=== PATIENT | male | born 1980 | race Caucasian/White ===

== ENCOUNTER → 2016-08-07 | Outpatient (REF) | payer BC ==
[2016-08-07 18:24] LABS: ALBUMIN 4.4 GM/DL (3.2-5.2); ALKALINE PHOSPHATASE 76 U/L (45-117); ALT/SGPT 112 U/L (12-78); ANION GAP 6 MEQ/L (8-16); AST/SGOT 59 U/L (15-37); BILIRUBIN,TOTAL 0.3 MG/DL (0.2-1.0); BLOOD UREA NITROGEN 13 MG/DL (7-18); CALCIUM LEVEL 9.1 MG/DL (8.5-10.1); CARBON DIOXIDE LEVEL 29 MEQ/L (21-32); CHLORIDE LEVEL 105 MEQ/L (98-107); CREATININE FOR GFR 0.84 MG/DL (0.70-1.30); GLOMERULAR FILTRATION RATE > 60.0 (>60); GLUCOSE, FASTING 95 MG/DL (70-105); POTASSIUM SERUM 4.2 MEQ/L (3.5-5.1); SODIUM LEVEL 140 MEQ/L (136-145); TOTAL PROTEIN 8.4 GM/DL (6.4-8.2)
[2016-08-07 19:50] LABS: BASO % 0.7 % (0.0-1.0); EOS # 0.3 K/mm3 (0.0-0.50); LARGE UNSTAINED CELL # 0.1 K/mm3 (0.0-0.4); LARGE UNSTAINED CELL % 1.4 % (0.0-4.0); LYMPH # 1.7 K/mm3 (1.5-4.5); LYMPH % 24.8 % (24.0-44.0); MEAN CORPUSCULAR HEMOGLOBIN 32.4 pg (27.0-33.0); MEAN CORPUSCULAR HGB CONC 34.2 g/dl (32.0-36.5); MEAN CORPUSCULAR VOLUME 94.8 fl (80.0-96.0); MONO # 0.4 K/mm3 (0.0-0.8); MONO % 5.5 % (0.0-5.0); NEUTROPHILS # 4.1 K/mm3 (1.8-7.7); NEUTROPHILS % 63.6 % (36.0-66.0); PLATELET COUNT, AUTOMATED 259 k/mm3 (150-450); RED CELL DISTRIBUTION WIDTH 12.7 % (11.5-14.5); WHITE BLOOD COUNT 6.5 K/mm3 (4.0-10.0)
[2016-08-08 13:17] LABS: CONTROL LINE HPYORI INT CTR LINE PRESENT
== END ==
LOC: M SFHCCLAY 09:55
PROVIDERS: ATTEND Nurse Practitioner
DX: K29.70 Gastritis, unspecified, without bleeding (principal)

== ENCOUNTER → 2017-02-28 | Outpatient (REF) | payer BC ==
[2017-02-28 12:42] LABS: ALBUMIN 4.7 GM/DL (3.2-5.2); ALBUMIN/GLOBULIN RATIO 1.18 (1.00-1.93); ALKALINE PHOSPHATASE 80 U/L (45-117); ALT/SGPT 99 U/L (12-78); ANION GAP 7 MEQ/L (8-16); AST/SGOT 72 U/L (7-37); BILIRUBIN,TOTAL 0.6 MG/DL (0.2-1.0); BLOOD UREA NITROGEN 15 MG/DL (7-18); CALCIUM LEVEL 9.8 MG/DL (8.5-10.1); CARBON DIOXIDE LEVEL 29 MEQ/L (21-32); CHLORIDE LEVEL 103 MEQ/L (98-107); CREATININE FOR GFR 0.89 MG/DL (0.70-1.30); GLOMERULAR FILTRATION RATE > 60.0 (>60); GLUCOSE, FASTING 97 MG/DL (70-105); POTASSIUM SERUM 4.4 MEQ/L (3.5-5.1); SODIUM LEVEL 139 MEQ/L (136-145); TOTAL PROTEIN 8.7 GM/DL (6.4-8.2)
== END ==
LOC: M SFHCCLAY 07:26
DX: R79.89 Other specified abnormal findings of blood chemistry (principal)
CPT/HCPCS: 80053

== ENCOUNTER → 2017-07-29 | Outpatient (REF) | payer BC ==
[2017-07-29 12:37] LABS: ANION GAP 11 MEQ/L (8-16); BLOOD UREA NITROGEN 16 MG/DL (7-18); CALCIUM LEVEL 9.5 MG/DL (8.5-10.1); CARBON DIOXIDE LEVEL 29 MEQ/L (21-32); CHLORIDE LEVEL 100 MEQ/L (98-107); GLOMERULAR FILTRATION RATE > 60.0 (>60); GLUCOSE, FASTING 105 MG/DL (70-100); POTASSIUM SERUM 3.5 MEQ/L (3.5-5.1); SODIUM LEVEL 140 MEQ/L (136-145)
== END ==
LOC: M SFHCCLAY 07:26
DX: I10 Essential (primary) hypertension (principal)
CPT/HCPCS: 80048

== ENCOUNTER → 2017-11-08 | Outpatient (REF) | payer BC ==
[2017-11-08 13:10] LABS: ALBUMIN 4.4 GM/DL (3.2-5.2); ALBUMIN/GLOBULIN RATIO 1.07 (1.00-1.93); ALKALINE PHOSPHATASE 96 U/L (45-117); ALT/SGPT 344 U/L (12-78); ANION GAP 11 MEQ/L (8-16); AST/SGOT 239 U/L (7-37); BILIRUBIN,TOTAL 0.5 MG/DL (0.2-1.0); BLOOD UREA NITROGEN 13 MG/DL (7-18); CALCIUM LEVEL 9.7 MG/DL (8.5-10.1); CARBON DIOXIDE LEVEL 28 MEQ/L (21-32); CHLORIDE LEVEL 99 MEQ/L (98-107); CREATININE FOR GFR 0.88 MG/DL (0.70-1.30); GLOMERULAR FILTRATION RATE > 60.0 (>60); GLUCOSE, FASTING 105 MG/DL (70-100); POTASSIUM SERUM 3.3 MEQ/L (3.5-5.1); SODIUM LEVEL 138 MEQ/L (136-145); TOTAL PROTEIN 8.5 GM/DL (6.4-8.2)
== END ==
LOC: M SFHCCLAY 07:49
DX: I10 Essential (primary) hypertension (principal)
CPT/HCPCS: 80053

== ENCOUNTER 2018-08-16 22:50 | Emergency (ER) | payer BC ==
[~2018-08-16] VITALS: Ht 180.3 cm; Wt 81.8 kg
[2018-08-16] MEDS ORDERED: ATEN100T7 PO (23:03)
[2018-08-16] MEDS ORDERED: BUSP15TA47 PO (23:03)
[2018-08-16] MEDS ORDERED: LORA2CON5 PO (23:03)
[2018-08-16] MEDS ORDERED: NS 1,000 ML IV ONE ×2 (23:15)
[2018-08-16 23:50] LABS: BLOOD UREA NITROGEN 11 MG/DL (7-18); CALCIUM LEVEL 8.6 MG/DL (8.5-10.1); CARBON DIOXIDE LEVEL 28 MEQ/L (21-32); CHLORIDE LEVEL 101 MEQ/L (98-107); CPK CREATINE PHOSPHOKINASE 217 U/L (39-308); CREATININE FOR GFR 0.81 MG/DL (0.70-1.30); ETHYL ALCOHOL (ETHANOL) 0.272 % (0.000-0.010); GLOMERULAR FILTRATION RATE > 60.0 (>60); GLUCOSE, FASTING 106 MG/DL (70-100); SODIUM LEVEL 140 MEQ/L (136-145)
[2018-08-17] MEDS ORDERED: POTASSIUM CHLORIDE 10 MEQ SR TABLET PO ONE
[2018-08-17 00:55] VITALS: BP 133/91
== END 2018-08-17 00:57 | disposition home or self-care (01) ==
LOC: M ED 22:50
DX: F10.229 Alcohol dependence with intoxication, unspecified (principal); E87.6 Hypokalemia; I10 Essential (primary) hypertension; F33.9 Major depressive disorder, recurrent, unspecified; F41.9 Anxiety disorder, unspecified; Z79.899 Other long term (current) drug therapy; F17.210 Nicotine dependence, cigarettes, uncomplicated
CPT/HCPCS: 80048; 82550; 96360; 96361; 99284; G0480

== ENCOUNTER → 2018-09-15 | Outpatient (REF) | payer BC ==
[~2018-09-15] MED LIST: ATEN100T7 PO; BUSP15TA47 PO; LORA2CON5 PO
[2018-09-15 17:32] LABS: ALBUMIN 4.7 GM/DL (3.2-5.2); ALT/SGPT 160 U/L (12-78); BILIRUBIN,TOTAL 0.7 MG/DL (0.2-1.0); BLOOD UREA NITROGEN 13 MG/DL (7-18); CALCIUM LEVEL 10.1 MG/DL (8.5-10.1); CARBON DIOXIDE LEVEL 33 MEQ/L (21-32); CHLORIDE LEVEL 91 MEQ/L (98-107); CREATININE FOR GFR 0.91 MG/DL (0.70-1.30); FREE T4 0.85 NG/DL (0.76-1.46); GLOMERULAR FILTRATION RATE > 60.0 (>60); GLUCOSE, FASTING 93 MG/DL (70-100); POTASSIUM SERUM 3.3 MEQ/L (3.5-5.1); SODIUM LEVEL 132 MEQ/L (136-145); TOTAL PROTEIN 8.8 GM/DL (6.4-8.2)
[2018-09-15 17:40] LABS: HEMATOCRIT 43.3 % (42.0-52.0); HEMOGLOBIN 15.7 g/dl (13.5-17.5); MEAN CORPUSCULAR HEMOGLOBIN 32.6 pg (27.0-33.0); MEAN CORPUSCULAR HGB CONC 36.3 g/dl (32.0-36.5); PLATELET COUNT, AUTOMATED 210 10^3/uL (150-450); RED BLOOD COUNT 4.81 10^6/uL (4.30-6.10); WHITE BLOOD COUNT 5.5 10^3/uL (4.0-10.0)
== END ==
LOC: M SFHCCLAY 10:08
PROVIDERS: ATTEND Family Medicine
DX: F41.9 Anxiety disorder, unspecified (principal)

== ENCOUNTER → 2019-01-15 | Outpatient (REF) | payer BC ==
[2019-01-15 12:21] LABS: ALBUMIN 3.8 GM/DL (3.2-5.2); ALT/SGPT 80 U/L (12-78); BILIRUBIN,TOTAL 0.3 MG/DL (0.2-1.0); BLOOD UREA NITROGEN 14 MG/DL (7-18); CALCIUM LEVEL 9.2 MG/DL (8.5-10.1); CARBON DIOXIDE LEVEL 34 MEQ/L (21-32); CHLORIDE LEVEL 99 MEQ/L (98-107); CHOLESTEROL LEVEL 168 MG/DL (<200); CREATININE FOR GFR 0.87 MG/DL (0.70-1.30); GLOMERULAR FILTRATION RATE > 60.0 (>60); GLUCOSE, FASTING 120 MG/DL (70-100); HDL CHOLESTEROL 35 MG/DL (>40); NON-HDL-C 133 MG/DL; POTASSIUM SERUM 3.6 MEQ/L (3.5-5.1); SODIUM LEVEL 140 MEQ/L (136-145); TOTAL PROTEIN 7.7 GM/DL (6.4-8.2); TRIGLYCERIDES LEVEL 401 MG/DL (<150)
[2019-01-15 13:47] LABS: HEMOGLOBIN A1c 5.5 %
== END ==
LOC: M SFHCCLAY 07:30
PROVIDERS: ATTEND Family Medicine
DX: I10 Essential (primary) hypertension (principal); R73.01 Impaired fasting glucose

== ENCOUNTER 2019-08-04 10:04 | Emergency (ER) | payer BC ==
[~2019-08-04] VITALS: Ht 182.9 cm; Wt 88.6 kg
[2019-08-04] MEDS ORDERED: TRAZ-252 (10:27)
[2019-08-04] MEDS ORDERED: ESCI20TA PO (10:27)
[2019-08-04 11:37] LABS: HEMATOCRIT 42.6 % (42.0-52.0); HEMOGLOBIN 15.3 g/dl (13.5-17.5); MEAN CORPUSCULAR HEMOGLOBIN 33.4 pg (27.0-33.0); MEAN CORPUSCULAR HGB CONC 35.9 g/dl (32.0-36.5); PLATELET COUNT, AUTOMATED 236 10^3/uL (150-450); RED BLOOD COUNT 4.58 10^6/uL (4.30-6.10); WHITE BLOOD COUNT 4.6 10^3/uL (4.0-10.0)
[2019-08-04 12:13] LABS: ACETAMINOPHEN LEVEL < 2.0 UG/ML (10.0-30.0); ALT/SGPT 250 U/L (12-78); BILIRUBIN,DIRECT 0.2 MG/DL (0.0-0.2); BILIRUBIN,TOTAL 0.3 MG/DL (0.2-1.0); BLOOD UREA NITROGEN 9 MG/DL (7-18); CALCIUM LEVEL 8.9 MG/DL (8.5-10.1); CARBON DIOXIDE LEVEL 28 MEQ/L (21-32); CHLORIDE LEVEL 95 MEQ/L (98-107); CREATININE FOR GFR 0.76 MG/DL (0.70-1.30); ETHYL ALCOHOL (ETHANOL) 0.262 % (0.000-0.010); GLOMERULAR FILTRATION RATE > 60.0 (>60); GLUCOSE, FASTING 111 MG/DL (70-100); POTASSIUM SERUM 2.8 MEQ/L (3.5-5.1); SODIUM LEVEL 134 MEQ/L (136-145); TOTAL PROTEIN 8.3 GM/DL (6.4-8.2)
[2019-08-04 12:30] LABS: MAGNESIUM LEVEL 1.7 MG/DL (1.8-2.4)
[2019-08-04] MEDS ORDERED: MAGNESIUM OXIDE 400 MG TAB (MAG-OX) PO ONE (13:00)
[2019-08-04] MEDS ORDERED: POTASSIUM CHLORIDE 10 MEQ SR TABLET PO ONE ×2 (13:00→19:45)
[2019-08-04 13:28] LABS: AMPHETAMINES LEVEL URINE NEGATIVE (NEGATIVE); BARBITURATES URINE NEGATIVE (NEGATIVE); BENZODIAZEPINES URINE NEGATIVE (NEGATIVE); CANNABINOIDS URINE NEGATIVE (NEGATIVE); COCAINE METABOLITE URINE NEGATIVE (NEGATIVE); METHADONE URINE NEGATIVE (NEGATIVE); OPIATES URINE NEGATIVE (NEGATIVE); PHENCYCLIDINE URINE NEGATIVE (NEGATIVE)
[2019-08-04] MEDS ORDERED: PHENobarbitaL 30 MG TAB PO ONE (19:45)
[2019-08-05 04:17] VITALS: BP 155/88
--- NOTE | 2019-08-05 09:50 | ECGEPIP ---
[facility] - ED Test Date: 2019-08-04 Pat Name: TRISTEN CAH Department: Room: - Gender: Male [employer]: : 1980 Requested By: CRUZ RICO Order Number: [id number] Reading MD: Jamil Romero Measurements Intervals [place] Rate: 77 P: 41 MO: 181 QRS: 67 QRSD: 114 T: 55 QT: 417 QTc: 475 Interpretive Statements SINUS RHYTHM MODERATE INTRAVENTRICULAR CONDUCTION DELAY NSTTW ABNORMALITIES NO PRIORS FOR COMPARISON Electronically Signed on 08-05-2019 9:50:24 EDT by Jamil Romero
== END 2019-08-05 04:19 ==
LOC: M ED 10:04
DX: R45.851 Suicidal ideations (principal); I10 Essential (primary) hypertension; F17.200 Nicotine dependence, unspecified, uncomplicated; K21.9 Gastro-esophageal reflux disease without esophagitis; F41.9 Anxiety disorder, unspecified; F32.9 Major depressive disorder, single episode, unspecified; Z79.899 Other long term (current) drug therapy
CPT/HCPCS: 36415; 80048; 80076; 80307; 83735; 84443; 85027; 87486; 87581; 87633; 87798; 93005; 99285; G0480

== ENCOUNTER → 2020-01-22 | Outpatient (REF) | payer OTHER ==
[~2020-01-22] MED LIST changes: +ESCI20TA PO; +TRAZ-252
[2020-01-22 11:55] LABS: BASO # 0.1 10^3/uL (0.0-0.2); BASO % 2.1 % (0.0-1.0); EOS # 0.2 10^3/uL (0.0-0.5); EOS % 2.9 % (0.0-3.0); HEMATOCRIT 43.2 % (42.0-52.0); HEMOGLOBIN 14.9 g/dl (13.5-17.5); LYMPH # 2.5 10^3/uL (1.5-5.0); LYMPH % 37.2 % (24.0-44.0); MEAN CORPUSCULAR HEMOGLOBIN 33.3 pg (27.0-33.0); MEAN CORPUSCULAR HGB CONC 34.5 g/dl (32.0-36.5); MEAN CORPUSCULAR VOLUME 96.6 fl (80.0-96.0); MONO # 0.7 10^3/uL (0.0-0.8); MONO % 10.4 % (0.0-5.0); NEUTROPHILS # 3.1 10^3/uL (1.5-8.5); NEUTROPHILS % 47.2 % (36.0-66.0); PLATELET COUNT, AUTOMATED 268 10^3/uL (150-450); RED BLOOD COUNT 4.47 10^6/uL (4.30-6.10); WHITE BLOOD COUNT 6.6 10^3/uL (4.0-10.0)
[2020-01-22 12:15] LABS: HEMOGLOBIN A1c 5.5 %
[2020-01-22 12:24] LABS: ALBUMIN 4.3 GM/DL (3.2-5.2); ALT/SGPT 244 U/L (12-78); BILIRUBIN,TOTAL 1.1 MG/DL (0.2-1.0); BLOOD UREA NITROGEN 11 MG/DL (7-18); CALCIUM LEVEL 9.7 MG/DL (8.5-10.1); CARBON DIOXIDE LEVEL 28 MEQ/L (21-32); CHLORIDE LEVEL 95 MEQ/L (98-107); CHOLESTEROL LEVEL 194 MG/DL (<200); CHOLESTEROL RISK RATIO 3.403 (<5); CREATININE FOR GFR 0.93 MG/DL (0.70-1.30); GLOMERULAR FILTRATION RATE > 60.0 (>60); GLUCOSE, FASTING 119 MG/DL (70-100); HDL CHOLESTEROL 57 MG/DL (>40); LDL CHOLESTEROL 107 MG/DL (<100); NON-HDL-C 137 MG/DL; POTASSIUM SERUM 3.1 MEQ/L (3.5-5.1); SODIUM LEVEL 134 MEQ/L (136-145); TOTAL PROTEIN 8.8 GM/DL (6.4-8.2); TRIGLYCERIDES LEVEL 152 MG/DL (<150)
== END ==
LOC: M SFHCCLAY 07:34
PROVIDERS: ATTEND Family Medicine
DX: I10 Essential (primary) hypertension (principal); R73.01 Impaired fasting glucose

== ENCOUNTER 2021-03-07 12:41 | Inpatient (IN) | payer OTHER ==
[~2021-03-07 12:41] MED LIST changes: -ESCI20TA PO; +ESCI20TA16 PO; -TRAZ-252; +TRAZ-252 PO
[2021-03-07] MEDS ORDERED: FAMOTIDINE INJ 20MG/2ML VIAL (S0028 PER 1) IVP ONE (12:50)
[2021-03-07] MEDS ORDERED: ONDANSETRON 4MG/2ML VIAL IV ONE (12:50)
[2021-03-07] MEDS ORDERED: NS 1,000 ML IV ONE (12:50)
[2021-03-07 13:23] LABS: INR 1.72; PROTHROMBIN TIME 20.6 SECONDS (12.7-14.5)
[2021-03-07 13:31] LABS: BASO # 0.1 10^3/uL (0.0-0.2); BASO % 1.1 % (0.0-1.0); EOS # 0.2 10^3/uL (0.0-0.5); EOS % 2.2 % (0.0-3.0); HEMATOCRIT 31.6 % (42.0-52.0); HEMOGLOBIN 11.9 g/dl (13.5-17.5); LYMPH # 1.3 10^3/uL (1.5-5.0); LYMPH % 12.5 % (24.0-44.0); MEAN CORPUSCULAR HEMOGLOBIN 35.1 pg (27.0-33.0); MEAN CORPUSCULAR VOLUME 93.2 fl (80.0-96.0); MONO % 10.3 % (2.0-8.0); NEUTROPHILS # 7.2 10^3/uL (1.5-8.5); NEUTROPHILS % 71.3 % (36.0-66.0); PLATELET COUNT, AUTOMATED 147 10^3/uL (150-450); RED BLOOD COUNT 3.39 10^6/uL (4.30-6.10); WHITE BLOOD COUNT 10.1 10^3/uL (4.0-10.0)
[2021-03-07 13:36] LABS: MEAN CORPUSCULAR HGB CONC 37.7 g/dl (32.0-36.5)
[2021-03-07 13:51] LABS: CK-MB VALUE MASS 9.5 NG/ML (<3.6); MB/CK RELATIVE INDEX 1.76 (< OR =4)
[2021-03-07 14:21] LABS: ALBUMIN 2.1 GM/DL (3.2-5.2); ALT/SGPT 305 U/L (12-78); BILIRUBIN,DIRECT 23.2 MG/DL (0.0-0.2); BLOOD UREA NITROGEN 160 MG/DL (7-18); CALCIUM LEVEL 7.8 MG/DL (8.5-10.1); CARBON DIOXIDE LEVEL 25 MEQ/L (21-32); CHLORIDE LEVEL 85 MEQ/L (98-107); CREATININE FOR GFR 6.93 MG/DL (0.70-1.30); ETHYL ALCOHOL (ETHANOL) < 0.003 % (0.000-0.010); GLOMERULAR FILTRATION RATE 9.4 (>60); GLUCOSE, FASTING 88 MG/DL (70-100); LIPASE 1352 U/L (73-393); POTASSIUM SERUM 2.4 MEQ/L (3.5-5.1); SODIUM LEVEL 128 MEQ/L (136-145); TOTAL PROTEIN 7.7 GM/DL (6.4-8.2)
[2021-03-07 14:23] LABS: BILIRUBIN,TOTAL 26.7 MG/DL (0.2-1.0)
[2021-03-07] MEDS ORDERED: POTASSIUM CHLORIDE 10MEQ SR TABLET PO ONE (14:25)
[2021-03-07] MEDS ORDERED: LIDOCAINE 2% 5ML JELLY UROJET TOP ONE (14:55)
[2021-03-07] MEDS ORDERED: LORA1TAB4 PO (14:59)
[2021-03-07] MEDS ORDERED: LEXA1TAB PO (14:59)
[2021-03-07] MEDS ORDERED: HYDR50TA70 PO (14:59)
[2021-03-07] MEDS ORDERED: ZOLO100T PO (14:59)
[2021-03-07] MEDS ORDERED: SILD100T PO (14:59)
[2021-03-07] MEDS ORDERED: KCL 10MEQ/100ML SWI (KRUN) 10 MEQ in IV 1 EA IV ONE (15:00)
[2021-03-07] MEDS ORDERED: [UNRECOGNIZED DRUG - REMARK] (15:00)
[2021-03-07] MEDS ORDERED: HOME MED LIST COMPLETE! XX SCH (15:00)
[2021-03-07 15:34] LABS: AMPHETAMINES LEVEL URINE NEGATIVE (NEGATIVE); BARBITURATES URINE NEGATIVE (NEGATIVE); BENZODIAZEPINES URINE NEGATIVE (NEGATIVE); CANNABINOIDS URINE POSITIVE (NEGATIVE); COCAINE METABOLITE URINE NEGATIVE (NEGATIVE); METHADONE URINE NEGATIVE (NEGATIVE); OPIATES URINE NEGATIVE (NEGATIVE); PHENCYCLIDINE URINE NEGATIVE (NEGATIVE)
[2021-03-07] MEDS: methylPREDNISolone 40MG 1ML VIAL IV SCH (15:50)
[2021-03-07] MEDS ORDERED: PHYTONADIONE 10MG/ML INJECTION (J3430) SC ONE (15:50)
[2021-03-07] MEDS ORDERED: OCTREOTIDE ACETATE 100MCG/ML VIAL **IV ADMINISTRATION ONLY IV ONE (16:20)
[2021-03-07] MEDS: KCL 10MEQ/100ML SWI (KRUN) 10 MEQ in IV 1 EA IV SCH ×4 (17:00→21:24)
[2021-03-07] MEDS ORDERED: MULTIVITAMIN -ADULT INJECTION 10 ML, THIAMINE INJection 100 MG, FOLIC ACID 1 MG in NS 1... IV ONE (18:00)
[2021-03-07] MEDS: OCTREOTIDE ACETATE 1,200 MCG in NS 238.8 ML IV SCH (18:00)
[2021-03-07 18:40] LABS: IRON (FE) 74 UG/DL (65-175); PERCENT SATURATION 60.7 % (19.7-50.0); TOTAL IRON BINDING CAPACITY 122 UG/DL (250-450)
[2021-03-07 18:47] LABS: MAGNESIUM LEVEL 3.7 MG/DL (1.8-2.4)
[2021-03-07 19:03] LABS: HEPATITIS B SURFACE ANTIGEN NEGATIVE (NEGATIVE)
[2021-03-07 19:08] LABS: HEPATITIS B SURFACE ANTIGEN NEGATIVE (NEGATIVE)
[2021-03-07 19:31] LABS: HEPATITIS B CORE ANTIBODY IGM NEGATIVE (NEGATIVE); HEPATITIS C VIRUS ABY INDEX < 0.0 INDEX (<0.8)
[2021-03-07 19:35] LABS: HEPATITIS C VIRUS ABY INDEX < 0.0 INDEX (<0.8)
[2021-03-07 19:37] LABS: HEPATITIS B CORE ANTIBODY IGM NEGATIVE (NEGATIVE)
[2021-03-07] MEDS: MIDODRINE 5 MG TAB PO SCH (21:23)
[2021-03-07 21:28] VITALS: BP 119/74
[2021-03-07 21:46] VITALS: BP 119/74
[2021-03-07 22:36] VITALS: BP 119/74
[2021-03-07] MEDS: rifAXIMin 550 MG TAB (XIFAXAN) PO SCH (22:51)
[2021-03-07] MEDS: THIAMINE 100 MG TAB PO SCH (22:55)
[2021-03-07 23:24] VITALS: BP 109/55
[2021-03-08] VITALS (12 sets, daily range): BP systolic 108–127; BP diastolic 56–69
[2021-03-08 05:00] LABS: HEMATOCRIT 26.4 % (42.0-52.0); MEAN CORPUSCULAR HEMOGLOBIN 35.7 pg (27.0-33.0); MEAN CORPUSCULAR VOLUME 95.3 fl (80.0-96.0); PLATELET COUNT, AUTOMATED 116 10^3/uL (150-450); RED BLOOD COUNT 2.77 10^6/uL (4.30-6.10); WHITE BLOOD COUNT 7.1 10^3/uL (4.0-10.0)
[2021-03-08 05:01] LABS: HEMOGLOBIN 9.9 g/dl (13.5-17.5); MEAN CORPUSCULAR HGB CONC 37.5 g/dl (32.0-36.5)
[2021-03-08 05:05] LABS: INR 1.87; PROTHROMBIN TIME 21.9 SECONDS (12.7-14.5)
[2021-03-08 06:17] LABS: ALBUMIN 2.1 GM/DL (3.2-5.2); BILIRUBIN,TOTAL 23.5 MG/DL (0.2-1.0); CALCIUM LEVEL 6.9 MG/DL (8.5-10.1); CREATININE FOR GFR 6.47 MG/DL (0.70-1.30); GLOMERULAR FILTRATION RATE 10.2 (>60); MAGNESIUM LEVEL 3.5 MG/DL (1.8-2.4); TOTAL PROTEIN 6.8 GM/DL (6.4-8.2)
[2021-03-08] MEDS: THIAMINE 100 MG TAB PO SCH ×2 (09:00→20:49)
[2021-03-08] MEDS: MULTIVITAMINS/MINERALS THERAP 1 TAB PO SCH (09:00)
[2021-03-08] MEDS: FOLIC ACID 1 MG TAB PO SCH (09:00)
[2021-03-08] MEDS: rifAXIMin 550 MG TAB (XIFAXAN) PO SCH ×2 (09:00→20:49)
[2021-03-08] MEDS: PANTOPRAZOLE 40MG VIAL (C9113 PER 1) IV SCH (09:50)
[2021-03-08] MEDS: MIDODRINE 5 MG TAB PO SCH ×3 (09:50→16:00)
[2021-03-08] MEDS: methylPREDNISolone 40MG 1ML VIAL IV SCH (09:51)
[2021-03-08] MEDS: OCTREOTIDE ACETATE 1,200 MCG in NS 238.8 ML IV SCH (16:31)
[2021-03-08] MEDS: LORazepam 2 MG TAB PO PRN (20:49)
[2021-03-09] VITALS (15 sets, daily range): BP systolic 112–126; BP diastolic 68–85
[2021-03-09 04:31] LABS: VENOUS BASE EXCESS -5.7 (-2.0-2.0); VENOUS HCO3 17.9 MEQ/L (23.0-27.0); VENOUS O2 SATURATION 99.1 % (60.0-80.0); VENOUS PH 7.408 UNITS (7.330-7.430); VENOUS STANDARD HCO3 19.8 MEQ/L; VENOUS TOTAL CO2 18.8 MEQ/L (24.0-28.0)
[2021-03-09 04:35] LABS: HEMATOCRIT 26.9 % (42.0-52.0); MEAN CORPUSCULAR HGB CONC 37.2 g/dl (32.0-36.5); MEAN CORPUSCULAR VOLUME 96.8 fl (80.0-96.0); PLATELET COUNT, AUTOMATED 117 10^3/uL (150-450); RED BLOOD COUNT 2.78 10^6/uL (4.30-6.10); WHITE BLOOD COUNT 11.5 10^3/uL (4.0-10.0)
[2021-03-09 04:51] LABS: INR 1.79; PROTHROMBIN TIME 21.2 SECONDS (12.7-14.5)
[2021-03-09 05:35] LABS: ALBUMIN 2.3 GM/DL (3.2-5.2); CALCIUM LEVEL 7.4 MG/DL (8.5-10.1); CREATININE FOR GFR 6.67 MG/DL (0.70-1.30); GLOMERULAR FILTRATION RATE 9.9 (>60); MAGNESIUM LEVEL 3.7 MG/DL (1.8-2.4); POTASSIUM SERUM 2.9 MEQ/L (3.5-5.1); TOTAL PROTEIN 7.8 GM/DL (6.4-8.2)
[2021-03-09] MEDS ORDERED: POTASSIUM CHLORIDE 10MEQ SR TABLET PO ONE (06:00)
[2021-03-09 06:21] LABS: BILIRUBIN,TOTAL 25.7 MG/DL (0.2-1.0)
[2021-03-09] MEDS: MIDODRINE 5 MG TAB PO SCH ×3 (07:56→16:39)
[2021-03-09] MEDS: KCL 10MEQ/100ML SWI (KRUN) 10 MEQ in IV 1 EA IV SCH ×4 (09:49→13:30)
[2021-03-09] MEDS: PANTOPRAZOLE 40MG VIAL (C9113 PER 1) IV SCH (09:56)
[2021-03-09] MEDS: FOLIC ACID 1 MG TAB PO SCH (09:56)
[2021-03-09] MEDS: rifAXIMin 550 MG TAB (XIFAXAN) PO SCH ×2 (09:56→21:48)
[2021-03-09] MEDS: methylPREDNISolone 40MG 1ML VIAL IV SCH (09:56)
[2021-03-09] MEDS: MULTIVITAMINS/MINERALS THERAP 1 TAB PO SCH (09:56)
[2021-03-09] MEDS: THIAMINE 100 MG TAB PO SCH ×2 (09:56→21:48)
[2021-03-09] MEDS: LORazepam 2 MG TAB PO PRN ×2 (14:35→21:59)
[2021-03-09] MEDS: OCTREOTIDE ACETATE 1,200 MCG in NS 238.8 ML IV SCH (16:40)
[2021-03-10] VITALS: BP 123/77
[2021-03-10 04:00] VITALS: BP 120/76
[2021-03-10] MEDS: methylPREDNISolone 40MG 1ML VIAL IV SCH (10:01)
[2021-03-10] MEDS: MULTIVITAMINS/MINERALS THERAP 1 TAB PO SCH (10:02)
[2021-03-10] MEDS: PANTOPRAZOLE 40MG VIAL (C9113 PER 1) IV SCH (10:02)
[2021-03-10] MEDS: MIDODRINE 5 MG TAB PO SCH (10:02)
[2021-03-10] MEDS: THIAMINE 100 MG TAB PO SCH (10:02)
[2021-03-10] MEDS: FOLIC ACID 1 MG TAB PO SCH (10:02)
[2021-03-10] MEDS: rifAXIMin 550 MG TAB (XIFAXAN) PO SCH (10:02)
[2021-03-10 10:27] LABS: HEMATOCRIT 30.1 % (42.0-52.0); HEMOGLOBIN 10.8 g/dl (13.5-17.5); MEAN CORPUSCULAR HEMOGLOBIN 35.2 pg (27.0-33.0); MEAN CORPUSCULAR HGB CONC 35.9 g/dl (32.0-36.5); PLATELET COUNT, AUTOMATED 116 10^3/uL (150-450); RED BLOOD COUNT 3.07 10^6/uL (4.30-6.10); WHITE BLOOD COUNT 12.8 10^3/uL (4.0-10.0)
[2021-03-10 10:47] LABS: INR 1.64; PROTHROMBIN TIME 19.8 SECONDS (12.7-14.5)
[2021-03-10 11:12] LABS: ALBUMIN 2.9 GM/DL (3.2-5.2); CALCIUM LEVEL 8.3 MG/DL (8.5-10.1); CREATININE FOR GFR 6.18 MG/DL (0.70-1.30); GLOMERULAR FILTRATION RATE 10.8 (>60); MAGNESIUM LEVEL 3.8 MG/DL (1.8-2.4); POTASSIUM SERUM 3.4 MEQ/L (3.5-5.1); TOTAL PROTEIN 7.9 GM/DL (6.4-8.2)
[2021-03-10] MEDS ORDERED: MORPHINE 10MG/0.5ML ORAL CONCENTRATE SOLUTION U/D SL PRN (13:50)
[2021-03-10] MEDS ORDERED: HYOSCYAMINE SULFATE 0.125 MG SUBL TABLET PO PRN (13:50)
[2021-03-10] MEDS: LORazepam 2 MG/ML VIAL IV PRN ×2 (16:03→18:18)
[2021-03-10 16:11] LABS: ANCA-ATYPICAL <1:20 titer (Neg:<1:20); ANTI DOUBLE STRAND-DNA AB <1 IU/mL (0-9); ANTI-MITOCHONDRIAL ANTIBODY <20.0 Units (0.0-20.0); ANTINUCLEAR ANTIBODIES DIRECT Positive (Negative); CERULOPLASMIN 31.5 mg/dL (16.0-31.0); CYTOPLASMIC NEUTROP AB ANCA-C <1:20 titer (Neg:<1:20); LIVER-KIDNEY MICROSOMAL ABY <20.1 Units (0.0-20.0); PERINUCLEAR AB ANCA-P <1:20 titer (Neg:<1:20); RNP ANTIBODIES 1.3 AI (0.0-0.9); SJOGREN'S ANTI SS-A <0.2 AI (0.0-0.9); SJOGREN'S ANTI SS-B <0.2 AI (0.0-0.9); SMITH ANTIBODIES <0.2 AI (0.0-0.9)
[2021-03-10] MEDS: MORPHINE 2 MG/ML 1ML VIAL (J2270) IV PRN (17:40)
[2021-03-11] MEDS: MORPHINE 2 MG/ML 1ML VIAL (J2270) IV PRN ×8 (02:50→22:48)
[2021-03-11] MEDS: LORazepam 2 MG/ML VIAL IV PRN ×6 (13:01→22:47)
[2021-03-11] MEDS ORDERED: LORazepam 2 MG/ML VIAL As Ordered ONE (22:45)
[2021-03-12] MEDS ORDERED: LORazepam 2 MG/ML VIAL As Ordered ONE ×7 (00:51→23:36)
[2021-03-12] MEDS: LORazepam 2 MG/ML VIAL IV PRN ×11 (00:53→23:38)
[2021-03-12] MEDS: MORPHINE 2 MG/ML 1ML VIAL (J2270) IV PRN ×11 (00:54→23:38)
[2021-03-13] MEDS ORDERED: LORazepam 2 MG/ML VIAL As Ordered ONE ×3 (01:35→05:39)
[2021-03-13] MEDS: LORazepam 2 MG/ML VIAL IV PRN ×4 (01:38→08:31)
[2021-03-13] MEDS: MORPHINE 2 MG/ML 1ML VIAL (J2270) IV PRN ×4 (01:39→08:32)
== END 2021-03-13 09:00 | disposition expired | DRG 442 ==
LOC: EDBD 12:41 → M ED 12:41 → M ED INP 15:50 → ENRESERV 19:35 → M PCU 20:56 → M MS5PR 03-08 16:08
PROVIDERS: ADMIT Family Medicine; ATTEND Family Medicine
DX: K76.7 Hepatorenal syndrome (principal); E46 Unspecified protein-calorie malnutrition; E87.1 Hypo-osmolality and hyponatremia; K86.0 Alcohol-induced chronic pancreatitis; N17.9 Acute kidney failure, unspecified; E87.2 Acidosis; F10.288 Alcohol dependence with other alcohol-induced disorder; K72.10 Chronic hepatic failure without coma; K70.31 Alcoholic cirrhosis of liver with ascites; K70.10 Alcoholic hepatitis without ascites; F41.9 Anxiety disorder, unspecified; Z51.5 Encounter for palliative care; Z66 Do not resuscitate; F32.A Depression, unspecified; I10 Essential (primary) hypertension; K80.20 Calculus of gallbladder without cholecystitis without obstruction; K71.3 Toxic liver disease with chronic persistent hepatitis; M62.50 Muscle wasting and atrophy, not elsewhere classified, unspecified site; D63.8 Anemia in other chronic diseases classified elsewhere; E87.6 Hypokalemia; Z63.5 Disruption of family by separation and divorce; Z79.899 Other long term (current) drug therapy; Z81.8 Family history of other mental and behavioral disorders